=== PATIENT | female | born 1990 | race Caucasian/White ===

== ENCOUNTER 2021-07-31 10:00 | Outpatient (CLI) | payer OTHER ==
[2021-07-31 11:11] LABS: BASOPHILS % (AUTO) 0.3 %; EOSINOPHILS % (AUTO) 0.3 %; HCT - HEMATOCRIT 34.3 % (37.0-47.0); LYMPHOCYTES # (AUTO) 1.7 10^3/uL (1.5-3.5); LYMPHOCYTES % (AUTO) 19.9 %; MEAN CORPUSCULAR HEMOGLOBIN 32.6 pg (27.0-31.0); MEAN CORPUSCULAR VOLUME 93.2 fL (81.0-99.0); MEAN PLATELET VOLUME 9.7 fL (7.9-10.8); MONOCYTES # (AUTO) 0.4 10^3/uL (0.0-1.0); NEUTROPHILS # (AUTO) 6.4 10^3/uL (1.5-6.6); PLT - PLATELET COUNT 230 10^3/uL (130-450); RED BLOOD COUNT 3.68 10^6/uL (4.20-5.40); RED CELL DISTRIBUTION WIDTH 12.1 % (12.0-15.0); WHITE BLOOD COUNT 8.6 x10^3/uL (4.8-10.8)
[2021-07-31 11:25] LABS: BILIRUBIN,TOTAL 0.6 mg/dL (0.2-1.0); CALCIUM 8.8 mg/dL (8.5-10.3); CREATININE 0.4 mg/dL (0.4-1.0); POTASSIUM 3.6 mmol/L (3.5-5.0); TOTAL PROTEIN 5.9 g/dL (6.7-8.2)
[2021-07-31 12:57] VITALS: BP 113/76
[2021-07-31 14:46] LABS: BACTERIAL VAGINOSIS DNA NEGATIVE (NEGATIVE); CANDIDA GLABRATA DNA NEGATIVE (NEGATIVE); CANDIDA GROUP DNA NEGATIVE (NEGATIVE); CANDIDA KRUSEI DNA NEGATIVE (NEGATIVE); TRICHOMONAS VAGINALIS DNA NEGATIVE (NEGATIVE)
--- NOTE | 2021-07-31 15:22 | Ultrasound Report ---
PROCEDURE: OB Bio w/Non Stress INDICATIONS: Abd pain OUTSIDE/PRIOR DATING DATA: Last menstrual period (LMP): Unknown. LMP-based estimated date of delivery (CLARITA): Unknown. First dating scan (date and location): 04/18/2021. Estimated date of delivery (CLARITA) from first dating scan: 11/23/2021. The below data below was generated using the study generated CLARITA of 11/23/2021 TECHNIQUE: Real-time scanning was performed of the fetus, with image documentation and biometric christine surements. Biophysical profile was also obtained. Endovaginal scanning: Not indicated COMPARISON: None. FINDINGS: General: A single living intrauterine gestation is present. Presentation: Vertex Placenta: Placental position is anterior, without previa. Amniotic fluid index: 16.3 cm, normal for gestational age. heart rate: 129 beats per minute. Maternal cervical canal: 4.0 cm long; normal length is 2.5 cm or more. Estimated gestational age from initial scan: 23 weeks, 4 days Biophysical profile: Tone: 2 points. Movement: 2 points. Respiration: 0 points. Largest pocket of fluid: 2 points. Umbilical artery S/D ratio measures 5.48, 3.64 and 3.24 at abdominal, mid and placental respectively. chest, stomach, bilateral kidneys and urinary bladder are visualized and are within normal limi ts. IMPRESSION: 1. Single live intrauterine gestation with fetus in vertex presentation. heart rate is 129 bpm. Normal amount of amniotic fluid. 2. biophysical profile score is 6 out of 8 with respiration score of 0. 3. Elevated umbilical artery S/D ratio at abdominal end. Findings were given to Dr. Vale at 2:37 PM by electromechanical technician. Reviewed by: Richmond Starr MD on 07/31/2021 3:21 PM PDT Approved by: Richmond Starr MD on 07/31/2021 3:21 PM PDT Station ID: [id number]
--- NOTE | 2021-07-31 15:25 | Ultrasound Report ---
PROCEDURE: Abdomen Limited INDICATIONS: abdominal pain TECHNIQUE: Real-time focused scanning was performed of the abdomen, with image documentation. COMPARISON: None FINDINGS: Limited ultrasound examination in periumbilical region at patient's reported area of pain shows no um bilical hernia. No abdominal wall defect. Limited examination of right lower quadrant abdomen show no pelvic or abdominal free fluid. Appendix is not definitively identified. No abnormal bowel wall thic k[place] is seen. IMPRESSION: Appendix is not visualized on this study. No secondary sonographic signs of acute appendicitis. No um bilical hernia. Reviewed by: Richmond Starr MD on 07/31/2021 3:23 PM PDT Approved by: Richmond Starr MD on 07/31/2021 3:23 PM PDT Station ID: [id number]
[2021-07-31 23:22] LABS: CHLAMYDIA TRACHOMATIS DNA NEGATIVE (NEGATIVE); NEISSERIA GONORRHOEAE DNA NEGATIVE (NEGATIVE)
--- NOTE | 2021-08-11 17:05 | PROVIDER PROGRESS NOTE ---
- HPI Chief Complaint: Other (abdominal pain) Current : Vital Signs Temperature 99.0 F 07/31/21 10:15 Heart Rate 66 07/31/21 10:15 Respiratory Rate 18 07/31/21 10:15 Blood Pressure 113/76 07/31/21 10:15 Temperature 99.0 F 07/31/21 10:15 Heart Rate 66 07/31/21 10:15 Respiratory Rate 18 07/31/21 10:15 Blood Pressure 113/76 07/31/21 10:15 O2 Saturation - Procedures OB Procedure Performed: NST NST Procedure: 07/31/21 Service Date of procedure: 07/31/21 Procedure Details: ID: Patient is a 30 yo at 23+4 wga here with abdominal pain. HPI: Patient has been receiving care at [facility]. She presents with sharp abdominal pain rate 8/10 slightly above the umbilicus. Started at 5 am. No vomiting but has mild nausea. No LOF/VB/Overt CTX. Endorses FM. Has had an umbilical hernia repair with mesh in the past. [place] last night. No exacerbation or initiation of symptoms with IC. More notable with standing and walking. No pain when supine. ROS: per HPI, otherwise remaining systems are negative. PE: VS: 99.0 66 113/76 18 GEN: NAD HEAD: NCAT EYES: No scleral icterus or conjunctival injection CV: RRR RESP: CTAB, normal effort ABD: Soft. Mild TTP cephalad to umbilicus and above uterus. Manipulation of uterus does not incite symptoms. No TTP in RLQ PSYCH: appropriate affect NEURO: alert and oriented, normal gait and coordination EXT: WWP FORMAL US: CL 4.0 BPP 6/8 (appropriate for gestational age) No evidence of umbilical hernia Appendix not well seen but no evidence of inflammation supporting infectious etiology CMP wnl CBC wnl, no leukocytosis amylase/lipase wnl FFN positive; IC less than 24 hours prior to collection Neg yeast/BV/GCCT/trich A/P: 30 yo at 23+4 wga here with abdominal pain Pain anterior to uterus -No evidence of labor. Reassuring CL and no uterine activity -Normal LFTs and pancreatic enzymes -No evidence of herniation at umbilicus -No evidence of appendicitis Positional. Suspect related to adhesive disease 2/2 hernia repair incited by growth of uterus. Some PT may relieve pain but if worsens to a debilitating level, may consider surgical release. Reviewed that labor, hernia, pancreatitis, liver disease are less likely given findings Warning signs reviewed FWB: Difficult to monitor. BPP obtained. 09/20 consistent with gestational age. Initially reported to be 24 weeks; actually 23+4/previable. No further monitoring indicated. Discharged to home to fu with primary OB
== END 2021-07-31 14:53 | disposition home or self-care (01) ==
LOC: WFO 10:00 → FBP 10:02 → WFO 14:53
PROVIDERS: ATTEND Obstetrics & Gynecology
DX: O99.891 Other specified diseases and conditions complicating pregnancy (principal); R10.9 Unspecified abdominal pain; Z3A.23 23 weeks gestation of pregnancy
CPT/HCPCS: 36415; 80053; 81514; 82150; 82731; 83690; 85025; 87491; 87591; 87661; 99215